=== PATIENT | female | born 1965 | race Caucasian/White ===

== ENCOUNTER 2020-07-10 15:27 | Inpatient (IN) | payer OTHER ==
[~2020-07-10] VITALS: Ht 170.2 cm; Wt 64.1 kg
[2020-07-10] MEDS ORDERED: AMOX500C2 PO (15:44)
--- NOTE | 2020-07-10 16:20 | NUR ---
Dr. Zuñiga at bedside for MSE
[2020-07-10] MEDS ORDERED: IV NORMAL SALINE 1000 ML BAG IV ONE (16:30)
[2020-07-10] MEDS ORDERED: METOCLOPRAMIDE HCL 10 MG/2 ML VIAL IV ONE (16:30)
[2020-07-10] MEDS ORDERED: diphenhydrAMINE 50 MG/1 ML VIAL IV ONE (16:30)
[2020-07-10] MEDS ORDERED: HYDROMORPHONE 1 MG/1 ML DISP.SYRIN IV ONE (16:30)
[2020-07-10 16:54] LABS: CREATININE 0.8 mg/dL (0.6-1.3); POTASSIUM 3.9 mmol/L (3.5-5.1)
[2020-07-10 17:00] LABS: BILIRUBIN,DIRECT 0.1 mg/dL (0.0-0.2); BILIRUBIN,TOTAL 0.3 mg/dL (0.2-1.0)
[2020-07-10 17:03] LABS: BASOPHILS % (AUTO) 0.7 % (0.0-2.0); EOSINOPHILS # (AUTO) 0.1 K/uL (0.0-0.7); EOSINOPHILS % (AUTO) 2.4 % (0.0-7.0); HEMATOCRIT 39.3 % (31.2-41.9); HEMOGLOBIN 13.4 g/dL (10.9-14.3); LYMPHOCYTES # (AUTO) 1.8 K/uL (20.0-40.0); LYMPHOCYTES % (AUTO) 31.9 % (20.5-51.5); MEAN CORPUSCULAR HEMOGLOBIN 28.9 uug (24.7-32.8); MEAN CORPUSCULAR HGB CONC 34 g/dL (32.3-35.6); MONOCYTES # (AUTO) 0.5 K/uL (2.0-10.0); MONOCYTES % (AUTO) 8.5 % (0.0-11.0); NEUTROPHILS # (AUTO) 3.2 K/uL (1.8-8.9); NEUTROPHILS % (AUTO) 56.5 % (38.5-71.5); PLATELET COUNT (AUTO) 312 K/uL (179-408); RED BLOOD CELL COUNT(AUTO) 4.63 MIL/uL (3.63-4.92); WHITE BLOOD COUNT (AUTO) 5.6 K/uL (3.8-11.8)
[2020-07-10] MEDS ORDERED: diphenhydrAMINE 50 MG/1 ML VIAL ONE (17:03)
[2020-07-10] MEDS ORDERED: METOCLOPRAMIDE HCL 10 MG/2 ML VIAL ONE (17:03)
[2020-07-10] MEDS ORDERED: HYDROMORPHONE 1 MG/1 ML DISP.SYRIN ONE (17:04)
[2020-07-10] MEDS ORDERED: IOHEXOL 350 100 ML INFUS..BTL ONE (17:20)
[2020-07-10] MEDS ORDERED: IV NORMAL SALINE 250 ML IV ONE (17:20)
[2020-07-10] MEDS ORDERED: SWABABLE VALVE TRANSFER SET EA MC ONE (17:20)
[2020-07-10] MEDS ORDERED: ASPIRIN 325 MG TABLET PO ONE (18:15)
[2020-07-10] MEDS ORDERED: ASPIRIN 325 MG TABLET ONE (18:33)
--- NOTE | 2020-07-10 21:19 | NUR ---
Pt. admitted to Telemetry , under care of Porsche Mccurdy [employer] DIRECTOR OF FINANCE [employer] completed
[2020-07-10] MEDS ORDERED: ACETAMINOPHEN ES 500 MG TABLET ONE (21:44)
[2020-07-10] MEDS ORDERED: ACETAMINOPHEN ES 500 MG TABLET PO ONE (22:30)
--- NOTE | 2020-07-10 22:57 | NUR ---
Report given to Ricardo CHILDERS
[2020-07-10 23:00] VITALS: BP 130/75
--- NOTE | 2020-07-10 23:10 | NUR ---
Patient arrived in the unit via wheelchair. Awake, alert and oriented x4. Able to transfer self from wheelchair to bed without difficulty. Made herself comfortable in bed independently. Denies any headache, numbness of lower face or dizziness at this time.Routine admission care done. Plan of care initiated. Vs taken and recorded.
--- NOTE | 2020-07-11 03:25 | NUR ---
Patient called presented complaint of ear ache.
--- NOTE | 2020-07-11 03:29 | NUR ---
Texted [employer] to get an order for PRN pain meds. Notified patient but got upset. She wants the medications right away.
[2020-07-11] MEDS ORDERED: HYDROCODONE/APAP 5-325MG TABLET PO PRN (03:45)
--- NOTE | 2020-07-11 03:45 | NUR ---
Obtained order of Union 5-325 mg from [employer] Consultant.
--- NOTE | 2020-07-11 03:46 | NUR ---
Patient went AMA. notified. Nursing supervisor pastry aware.
[2020-07-11 04:00] VITALS: BP 101/55
[2020-07-11] MEDS ORDERED: BLOOD SUGAR DIAGNOSTIC 1 EACH STRIP VI SCH (07:30)
[2020-07-11] MEDS ORDERED: ASPIRIN EC 81 MG TABLET.DR PO SCH (09:00)
[2020-07-11] MEDS ORDERED: CLOPIDOGREL 75 MG TABLET PO SCH (09:00)
== END 2020-07-11 03:50 | disposition left against medical advice (07) | DRG 66 ==
LOC: ER 15:27 → TELE3 22:55
PROVIDERS: ADMIT Nurse Practitioner Acute Care; ATTEND Nurse Practitioner Acute Care
DX: I63.231 Cerebral infarction due to unspecified occlusion or stenosis of right carotid arteries (principal); R29.700 NIHSS score 0; Z83.3 Family history of diabetes mellitus; G45.9 Transient cerebral ischemic attack, unspecified; R40.2362 Coma scale, best motor response, obeys commands, at arrival to emergency department; R40.2142 Coma scale, eyes open, spontaneous, at arrival to emergency department; R40.2252 Coma scale, best verbal response, oriented, at arrival to emergency department; M53.82 Other specified dorsopathies, cervical region; M62.838 Other muscle spasm
CPT/HCPCS: 36415; 70030-TC; 70496; 85025; 93005; A9150; G0378; J1170; J1200; J2765; J7050; Q9967